=== PATIENT | male | born 1935 | race Caucasian/White ===

== ENCOUNTER 2017-12-18 18:20 | Emergency (ER) | payer MEDICARE ==
[~2017-12-18] VITALS: Ht 182.9 cm; Wt 99.8 kg
== END 2017-12-18 18:56 | disposition home or self-care (01) ==
LOC: ER 18:20
DX: L03.116 Cellulitis of left lower limb (principal); I10 Essential (primary) hypertension; F17.290 Nicotine dependence, other tobacco product, uncomplicated
CPT/HCPCS: 99282

== ENCOUNTER → 2018-08-15 | Outpatient (CLI) | payer MEDICARE | LOC: RAD 15:50 | PROVIDERS: ATTEND Family Medicine | DX: M79.604 Pain in right leg (principal) | CPT/HCPCS: 93971 ==

== ENCOUNTER 2018-09-11 13:51 | Emergency (ER) | payer MEDICARE ==
[~2018-09-11] VITALS: Ht 182.9 cm; Wt 99.8 kg
== END 2018-09-11 18:55 | disposition left against medical advice (07) ==
LOC: ER 13:51
DX: M79.604 Pain in right leg (principal)
CPT/HCPCS: 99281

== ENCOUNTER 2018-11-19 18:47 | Observation (INO) | payer MEDICARE ==
[~2018-11-19] VITALS: Ht 182.9 cm; Wt 99.8 kg
--- NOTE | 2018-11-19 19:46 | NUR ---
AFTER BEING IN ROOM FOR A FEW MINUTES, PT STATES HE ALSO HAS BEEN HAVING INTERMITTENT CHEST DISCOMFORT, WORSENS WITH INSPIRATION, AWAKE ALERT SKIN W/D RESP NONLAB. NAD NOTED. 12 LEAD EKG DONE AND GIVEN TO MD. IV ATTEMPTED X1 WITHOUT SUCCESS, TOLERATED WELL
[2018-11-19 19:57] LABS: BASOPHILS % 0.6 % (0.0-1.0); EOSINOPHILS # (AUTO) 0.1 (0.0-0.4); EOSINOPHILS % 1.8 % (0.0-6.0); HEMATOCRIT 43.9 % (38.2-49.6); LYMPHOCYTES # (AUTO) 1.6 (1.0-3.2); MEAN CORPUSCULAR HEMOGLOBIN 28.7 pg (28-32); MEAN CORPUSCULAR HGB CONC 34.2 g/dL (31-35); MEAN CORPUSCULAR VOLUME 83.9 fL (81-99); MONOCYTES # (AUTO) 0.9 (0.2-0.8); MONOCYTES % 12.7 % (4.4-11.3); NEUTROPHILS # (AUTO) 4.1 (2.1-6.9); NEUTROPHILS % 60.6 % (38.7-80.0); PLATELET COUNT 193 x10e3/uL (140-360); RED BLOOD COUNT 5.23 x10e6/uL (4.3-5.7); RED CELL DISTRIBUTION WIDTH 14.1 % (11.7-14.4)
[2018-11-19] MEDS ORDERED: ASPIRIN 81 MG CHEW TAB PO ONE ×2 (20:00→20:30)
[2018-11-19 20:10] LABS: PARTIAL THROMBOPLASTIN TIME 48.2 seconds (23.8-35.5)
[2018-11-19] MEDS ORDERED: SIMVASTATIN10 MG PO (20:17)
[2018-11-19] MEDS ORDERED: METOPROLOL TART50 MG PO (20:17)
[2018-11-19] MEDS ORDERED: WARFARIN SODIUM5 MG PO (20:17)
[2018-11-19] MEDS ORDERED: DIGOXIN125 MCG PO (20:17)
[2018-11-19] MEDS ORDERED: PROPAFENONE HC425 MG PO (20:17)
[2018-11-19] MEDS ORDERED: DIOVAN HCT 3201 EAC1 PO (20:17)
[2018-11-19] MEDS ORDERED: COUMADIN2.5 MG PO (20:17)
[2018-11-19 20:18] LABS: ALBUMIN/GLOBULIN RATIO 1.4 (0.8-2.0); CALCIUM 9.3 mg/dL (8.4-10.2); CREATININE, SERUM 1.3 mg/dL (0.72-1.25)
[2018-11-19] MEDS ORDERED: ACID REDUCER150 MG PO (20:22)
[2018-11-19 20:24] LABS: INR 3.86; PROTHROMBIN TIME 40.5 seconds (11.9-14.5)
--- NOTE | 2018-11-19 20:25 | Diagnostic Imaging Report ---
EXAMINATION: CHEST 2 VIEWS INDICATION:coughed up sputum with bright red blood x3 COMPARISON: None FINDINGS: PA and lateral views TUBES and LINES: Left chest wall cardiac device. LUNGS: Lungs are well inflated. Scattered calcified granulomas. Bibasilar atelectasis. There is no evidence of pneumonia or pulmonary edema. PLEURA: No pleural effusion or pneumothorax. HEART AND MEDIASTINUM: The cardiomediastinal silhouette is unremarkable. BONES AND SOFT TISSUES: No acute osseous lesion. Soft tissues are unremarkable. UPPER ABDOMEN: No free air under the diaphragm. IMPRESSION: No acute thoracic abnormality. Signed by: DR. Mao Sadler MD on 11/19/2018 8:21 PM
[2018-11-19] MEDS ORDERED: CALCIUM 600+D1 EACH PO (20:26)
[2018-11-19] MEDS ORDERED: MAGNESIUM250 M1 PO (20:26)
[2018-11-19] MEDS ORDERED: OSTEO BI-FLEX1 EAC2 PO (20:26)
[2018-11-19] MEDS ORDERED: VITAMIN C1000 MG PO (20:26)
[2018-11-19] MEDS ORDERED: FISH OIL CONCE1 EACH PO (20:26)
[2018-11-19 20:31] LABS: CREATINE KINASE 30 IU/L (30-200)
--- OUTSIDE RECORDS SUMMARY | 2018-11-19 21:23 | XMS REPORT ---
[facility] Address Unknown Phone Unavailable Care Team Providers Care Pot Sander Name Role Phone Chester CARDOSO Unavailable Unavailable Problems This patient has no known problems. Allergies, Adverse Reactions, Alerts This patient has no known allergies or adverse reactions. Medications This patient has no known medications. Results Test Description Test Time Test Comments Text Results Atomic Results Result Comments CHEST 2 VIEWS 2018-11-19 20:17:00 [place] [address] Patient Name: THOR OLIVEIRA MR #: [id number] : 1935 Age/Sex: 83/M Req #: [id number] Adm Physician: Ordered by: STEFFANY PATTERSON MD Report #: [id number] Location: ER Room/Bed: Procedure: [id number] DX/CHEST 2 VIEWS Exam Date: 11/19/18 Exam Time: 1954 REPORT STATUS: Signed EXAMINATION: CHEST 2 VIEWS INDICATION:coughed up spu rayo with bright red blood x3 COMPARISON: None FINDINGS: PA and lateral views TUBES and LINES: Left chest wall cardiac device. LUNGS: Lungs are well inflated. Scattered calcified granulomas. Bibasilar atelectasis. There is no evidence of pneumonia or pulmonary edema. PLEURA: No pleural effusion or pneumothorax. HEART AND MEDIASTINUM: The cardiomediastinal silhouette is unremarkable. BONES AND SOFT TISSUES: No acute osseous lesion. Soft tissues are unremarkable. UPPER ABDOMEN: No free air under the diaphragm. IMPRESSION: No acute thoracic abnormality. Signed by: DR. Mao Ingram MD on 11/19/2018 8:21 PM Dictated By: MAO INGRAM MD 20 Transcribed By: LANI on 11/19/182020 COPY TO: STEFFANY PATTERSON MD
--- NOTE | 2018-11-19 22:15 | NUR ---
PT ARRIVED TO THE UNIT FROM ER IN A STRETCHER.WITH C/O CHEST PAIN AND HEMOPTYSIS.AAOX4.AMBULATES.SKIN INTACT.ASSESSMENT DONE.NO RESP.DISTRESS.NO PAIN VOICED RIGHT NOW.IV #18G TO LAC PATENT.TELE # 18 IS PLACED.ORIENTED TO THE UNIT.BED LOCKED AND IN LOWEST POSITION.PHONE AND CALL LIGHT WITHIN REACH.INSTRUCTED TO CALL FOR ASSISTANCE NEEDED.KEEP MONITOR THE PT.
[2018-11-19 22:30] VITALS: BP 173/78
[2018-11-19 22:32] VITALS: BP 173/78
[2018-11-19 23:52] VITALS: BP 135/61
[2018-11-20] VITALS (8 sets, daily range): BP systolic 128–169; BP diastolic 60–70
[2018-11-20 05:45] LABS: CREATINE KINASE MB 0.4 ng/mL (0-5.0)
[2018-11-20 05:59] LABS: CHOL/HDL RATIO 2.9 (3.9-4.7)
--- NOTE | 2018-11-20 06:30 | NUR ---
BRIGHT BLOOD STAINED SPUTUM 100CC EMPTIED.
--- NOTE | 2018-11-20 06:30 | NUR ---
PT HAS COUGH AND HEMOPTYSIS.INFORMED TO MD YOUNGBLOOD.
--- NOTE | 2018-11-20 06:50 | NUR ---
REPORT GIVEN TO THE ON COMING RN.WALKING ROUNDS DONE.STABLE CONDITION.
[2018-11-20] MEDS ORDERED: ACETAMINOPHEN 325 MG TAB PO PRN (11:30)
[2018-11-20] MEDS ORDERED: ONDANSETRON HCL INJ 2MG/ML 2ML 2 MG/ML VIAL IV PRN (11:30)
--- NOTE | 2018-11-20 11:32 | NUR ---
called [employer] to assess pacemaker, spoke soo dove. tech will be calling with ETA today
[2018-11-20 11:35] LABS: INR 3.79; PROTHROMBIN TIME 39.9 seconds (11.9-14.5)
--- NOTE | 2018-11-20 12:11 | NUR ---
cancelled [employer] order per md levi. states he spoke with md davis who says pacer does not need to be evaluated
[2018-11-20] MEDS: FAMOTIDINE 20 MG TAB PO SCH (13:30)
--- NOTE | 2018-11-20 17:51 | Consultation ---
DATE OF CONSULTATION: PULMONARY/CRITICAL CARE CONSULTATION REFERRING PHYSICIAN: Dr. Daniels. CHIEF COMPLAINT: Hemoptysis. HISTORY OF PRESENT ILLNESS: The patient is an 83-year-old man. He has a history of atrial fibrillation and takes warfarin on a daily basis. He reports a slight change in his diet, decreased vegetable intake. Over the past 2 days, he has noticed some hemoptysis. It happened twice yesterday and twice this morning. Each time, he was able to put the blood clot in the napkin. He denies any epistaxis. He is not complaining of any chest pain or dyspnea. He denies any fevers. PAST SURGICAL HISTORY: Status post hernia repair. PAST MEDICAL HISTORY 1. Atrial fibrillation as noted above. 2. Hypertension. 3. No prior history of asthma, COPD or other lung problems. SOCIAL HISTORY: The patient smoked a pipe, was never a cigarette smoker. He is a drinker. He has no asbestos exposure. ALLERGIES: HE DOES HAVE AN ALLERGY TO PENICILLIN. FAMILY HISTORY: Noncontributory. REVIEW OF SYSTEMS: He has no fever or weight loss. He has no headache. He has no nasal congestion or pain. He has no sore throat. He does not complain of any dyspnea or cough. He does not complain of chest pain. He denies any abdominal pain. There is no nausea or vomiting. There is no leg edema. There is no calf tenderness. There are no neurological complaints. PHYSICAL EXAMINATION VITAL SIGNS: The patient is afebrile. Blood pressure 146/67 and the pulse is 50, respiratory rate is 18 and saturation is 98%. HEENT: Examination shows no facial swelling or erythema. The nasal mucosa is normal. The oropharynx is normal. LYMPHATIC: Examination shows no submandibular, cervical or supraclavicular adenopathy. CARDIAC: Exam reveals regular rate and rhythm with normal S1 and S2. There are no murmurs or rubs. LUNGS: Auscultation of the lungs is clear, breath sounds bilaterally. There is no wheezing. ABDOMEN: Soft and nontender. There is no rebound or guarding. EXTREMITIES: Examination of the extremities shows no leg edema or calf tenderness. There is no cyanosis or clubbing. SKIN: Examination shows no rashes. NEUROLOGIC: Exam shows no focal abnormalities. RADIOGRAPHIC DATA: Chest x-ray shows no active disease. LABORATORY DATA: White blood cell count is 6.7 and hemoglobin is 15, platelet count is 193. The BUN and creatinine ratio is 19 to 1.30. The other electrolytes are within normal limits. The INR is 3.86 with a PT of 40.5. IMPRESSIONS 1. Hemoptysis. 2. Elevated INR secondary to warfarin. 3. Elevated creatinine of unclear time course. 4. Atrial fibrillation. 5. Hypertension. PLAN 1. Hold warfarin and monitor INR. 2. CT scan of chest with IV contrast. 3. Urinalysis to look for any hematuria. 4. Continue the monitoring of the creatinine. Job#: [id number] ERMELINDA
--- NOTE | 2018-11-20 19:10 | NUR ---
REPORT TAKEN FROM AM RN.WALKING ROUNDS DONE.STABLE CONDITION.
--- NOTE | 2018-11-20 19:39 | Diagnostic Imaging Report ---
EXAM: CT Chest WITHOUT contrast INDICATION: HEMOPTYSIS COMPARISON: Chest x-ray 11/19/2018 TECHNIQUE: Chest was scanned utilizing a multidetector helical scanner from the lung apex through the level of the adrenal glands without administration of IV contrast. Absence of intravenous contrast decreases sensitivity for detection of lymphadenopathy and vascular pathology. Coronal and sagittal reformations were obtained. Routine protocol was performed. IV CONTRAST: None COMPLICATIONS: None RADIATION DOSE: Total DLP: 575.7 mGy*cm Estimated effective dose: (DLP x 0.014 x size factor) mSv CTDIvol has been reviewed. It is below the limits set by the Radiation Protocol Committee (RPC). FINDINGS: LINES/ TUBES: Left chest wall cardiac pacer with leads in the right atrium and right ventricle. LUNGS AND AIRWAYS: Scattered mild reticular nodular opacities bilaterally without lobar predominance. Scattered calcified granulomas. Scattered pulmonary nodules, largest in the left lower lobe measuring 6 mm (series 3 image 93). No consolidations. Airways are normal. PLEURA: The pleural spaces are clear. HEART AND MEDIASTINUM: The thyroid gland is normal. No mediastinal, hilar or axillary lymphadenopathy. The heart is normal in size.. There is no pericardial effusion. The pulmonary artery measures 3.1 cm. Ascending aorta measures 4 cm. Mild atherosclerotic calcifications of the aorta and coronary arteries. UPPER ABDOMEN: Left hepatic 5.3 cm cyst. BONES: There are degenerative changes in the thoracic spine. SOFT TISSUES: Unremarkable. IMPRESSION: Scattered tree-in-bud opacities likely representing atypical infection. Additional scattered pulmonary nodules, also likely infectious. Consider follow-up chest CT in 6-12 months to document resolution. Signed by: DR. Mao Sadler MD on 11/20/2018 7:36 PM
[2018-11-20] MEDS ORDERED: SIMVASTATIN 20 MG TAB PO SCH (21:00)
--- NOTE | 2018-11-20 22:48 | NUR ---
ASSESSMENT DONE.NO RESP.DISTRESS.NO PAIN VOICED .BED LOCKED AND IN LOWEST POSITION.PHONE AND CALL LIGHT WITHIN REACH.INSTRUCTED TO CALL FOR ASSISTANCE NEEDED.
[2018-11-21] VITALS: BP 137/62
--- NOTE | 2018-11-21 03:56 | NUR ---
Urine collected and sent to the lab.
[2018-11-21 03:58] LABS: BILIRUBIN,URINE NEGATIVE (NEGATIVE); CLARITY,URINE CLEAR (CLEAR); COLOR,URINE YELLOW (YELLOW); KETONES,URINE NEGATIVE (NEGATIVE); LEUKOCYTE ESTERASE ,URINE NEGATIVE (NEGATIVE); NITRITE,URINE NEGATIVE (NEGATIVE); PROTEIN,URINE DIPSTICK NEGATIVE (NEGATIVE); URINE UROBILINOGEN 0.2 mg/dL (0.2 - 1)
[2018-11-21 03:59] LABS: EPITHELIAL CELLS,URINE FEW /LPF; RBC,URINE 0-5 /HPF (0-5); WBC,URINE (MAN) 0-5 /HPF (0-5)
[2018-11-21 04:00] VITALS: BP 133/61
[2018-11-21 05:22] LABS: BASOPHILS % 0.4 % (0.0-1.0); EOSINOPHILS # (AUTO) 0.2 (0.0-0.4); LYMPHOCYTES # (AUTO) 1.6 (1.0-3.2); LYMPHOCYTES % 21.6 % (18.0-39.1); MEAN CORPUSCULAR HEMOGLOBIN 28.2 pg (28-32); MEAN CORPUSCULAR HGB CONC 32.9 g/dL (31-35); MEAN CORPUSCULAR VOLUME 85.6 fL (81-99); MONOCYTES # (AUTO) 0.8 (0.2-0.8); MONOCYTES % 10.1 % (4.4-11.3); NEUTROPHILS # (AUTO) 4.9 (2.1-6.9); NEUTROPHILS % 65.8 % (38.7-80.0); PLATELET COUNT 150 x10e3/uL (140-360); RED BLOOD COUNT 4.79 x10e6/uL (4.3-5.7); RED CELL DISTRIBUTION WIDTH 14.2 % (11.7-14.4)
[2018-11-21 05:34] LABS: HEMOGLOBIN 13.5 g/dL (14.0-18.0)
[2018-11-21 05:49] LABS: INR 2.16; PROTHROMBIN TIME 25.7 seconds (11.9-14.5)
[2018-11-21 05:56] LABS: ANION GAP 13.9 mmol/L (8-16); BLOOD UREA NITROGEN 17 mg/dL (7-26); BUN/CREATININE RATIO 18 (6-25); CALCIUM 8.7 mg/dL (8.4-10.2); CARBON DIOXIDE 26 mmol/L (22-29); CHLORIDE 105 mmol/L (98-107); CREATININE, SERUM 0.97 mg/dL (0.72-1.25); EST GLOMERULAR FILTRATION RATE > 60 ML/MIN (60-); GLUCOSE 100 mg/dL (74-118); POTASSIUM 3.9 mmol/L (3.5-5.1); SODIUM 141 mmol/L (136-145)
--- NOTE | 2018-11-21 06:50 | NUR ---
Report given to the oncoming rn walking rounds done.stable condition.
--- NOTE | 2018-11-21 07:05 | NUR ---
Received patient mid fowlers position, side rails upx2, call light within reach. AAOX3 to time, person, place. Respirations even and unlabored. Denies pain. Instructed patient to use call light for assistance. Voiced understanding. Will continue to monitor.
[2018-11-21 08:05] VITALS: BP 143/93
[2018-11-21 08:08] VITALS: BP 119/59
[2018-11-21] MEDS ORDERED: DIGOXIN 0.125 MG TAB PO SCH (09:00)
[2018-11-21] MEDS: FAMOTIDINE 20 MG TAB PO SCH (10:09)
[2018-11-21] MEDS ORDERED: DOXYCYCLINE HYCLATE TABLET 100 MG TAB PO SCH (12:45)
[2018-11-21] MEDS ORDERED: WARFARIN SOD 5 MG TAB PO ONE (12:45)
[2018-11-21 12:46] VITALS: BP 145/69
[2018-11-21] MEDS ORDERED: DOXYCYCLINE HY100 MG PO (13:30)
--- NOTE | 2018-11-21 13:49 | Discharge Summary ---
PRIMARY CARE DOCTOR: Dr. Steven Salas. FINAL DIAGNOSIS: Hemoptysis due to atypical pneumonia and supratherapeutic international normalized ratio. SECONDARY DIAGNOSES 1. Atrial fibrillation, on Coumadin. 2. Mild acute renal failure, resolved. 3. Hypertension, resolved. CONSULTANTS: Dr. Larry, camp advisor. PROCEDURES/STUDIES PERFORMED: Computed tomography of the chest. HISTORY: Per H&P. HOSPITAL COURSE: Patient was admitted with INR of 3.86, was holding it, now is back to therapeutic. I will go ahead and restart his usual Coumadin dosage at home. Patient's chest x-ray was normal. However, his CT shows atypical infection. I will go ahead and start him on doxycycline. I have discussed this case with Dr. Larry today. Patient will follow up with him in three days. There is also some concern about his initial EKG, whether his pacemaker has a lead failure. I sent the EKG to his engineer booster and exhauster, and his engineer booster and exhauster does not think there is a lead failure but does want him to follow up with him next week. Initially his creatinine was 1.3. Right now it is 0.97. Patient was seen and examined today. CONDITION ON DISCHARGE: Improved. DISCHARGE MEDICATIONS: Please see medication reconciliation form. KRYSTYNA YOUNGBLOOD M.D. Job#: [id number] EV cc:STEVEN SALAS MD
--- NOTE | 2018-11-21 14:04 | NUR ---
Left AC IV discontinued. No signs of infiltration noted.2x2 gauze and tape placed. Taken via wheelchair by PCT to personla car. Accompanied by family members and . AAOX4 to time, person, place, situation. Respirations even and unlabored. RX, discharge instructions and all personal belongings taken with patient.
== END 2018-11-21 14:04 | disposition home or self-care (01) ==
LOC: ER 18:47 → ERHOLD 21:20 → MED/SURG 22:13
PROVIDERS: ADMIT Internal Medicine; ATTEND Internal Medicine
DX: D68.32 Hemorrhagic disorder due to extrinsic circulating anticoagulants (principal); R04.2 Hemoptysis; J18.9 Pneumonia, unspecified organism; I48.91 Unspecified atrial fibrillation; E87.5 Hyperkalemia; T45.515A Adverse effect of anticoagulants, initial encounter; N17.9 Acute kidney failure, unspecified; Z95.0 Presence of cardiac pacemaker
CPT/HCPCS: 36415 ×3; 71046; 71250; 80048; 80053; 80061; 80162; 81001; 82550 ×2; 82553 ×2; 84484 ×2; 85025 ×2; 85610 ×3; 85730; 93005; 93306; 99284; G0378 ×3

== ENCOUNTER → 2018-12-20 | Outpatient (CLI) | payer MEDICARE ==
[~2018-12-20] MED LIST: ACID REDUCER150 MG PO; CALCIUM 600+D1 EACH PO; COUMADIN2.5 MG PO; DIGOXIN125 MCG PO; DIOVAN HCT 3201 EAC1 PO; DOXYCYCLINE HY100 MG PO; FISH OIL CONCE1 EACH PO; MAGNESIUM250 M1 PO; METOPROLOL TART50 MG PO; OSTEO BI-FLEX1 EAC2 PO; PROPAFENONE HC425 MG PO; SIMVASTATIN10 MG PO; VITAMIN C1000 MG PO; WARFARIN SODIUM5 MG PO
--- NOTE | 2018-12-20 17:34 | Diagnostic Imaging Report ---
EXAMINATION: CHEST 2 VIEWS INDICATION: ^[id number] ^1700 ^PNEUMONIA COMPARISON: CT chest 11/20/2018 and chest radiograph 11/19/2018 FINDINGS: PA and lateral views TUBES and LINES: Stable 2-lead pacemaker with leads overlying the right atrial appendage and right ventricle. LUNGS: Lungs are well inflated. Near resolution of the bilateral lower lobe reticular nodular opacities. A few dense nodules in the right lower lobe consistent with calcified granulomas, unchanged. There is no evidence of pneumonia or pulmonary edema. PLEURA: No pleural effusion or pneumothorax. HEART AND MEDIASTINUM: The cardiomediastinal silhouette is unremarkable. BONES AND SOFT TISSUES: Mild degenerative changes of the thoracic spine. Soft tissues are unremarkable. UPPER ABDOMEN: No free air under the diaphragm. IMPRESSION: Resolved bilateral lower lobes atypical pneumonia. No new consolidations. Signed by: Dr. Mine Little M.D. on 12/20/2018 5:30 PM
== END ==
LOC: RAD 16:50
PROVIDERS: ATTEND Family Medicine
DX: J18.9 Pneumonia, unspecified organism (principal)
CPT/HCPCS: 71046

== ENCOUNTER → 2019-06-27 | Outpatient (CLI) | payer MEDICARE ==
--- NOTE | 2019-06-27 12:51 | Diagnostic Imaging Report ---
EXAM: CHEST 2 VIEWS DATE: 06/27/2019 12:15 PM INDICATION: Shortness of breath COMPARISON: 12/20/2018 FINDINGS: Left-sided dual-lead pacing device identified in stable position. The trachea is midline. The lungs are symmetrically expanded without evidence for focal consolidation, pneumothorax, or significant pleural effusion. Stable appearing calcified granulomas noted within the right lower lung zone. The cardiac mediastinal silhouette is stable in appearance. No acute osseous abnormality is identified. IMPRESSION: No acute cardiopulmonary process identified. Signed by: Dr. Adalberto Bella MD on 06/27/2019 12:48 PM
== END ==
LOC: RAD 11:53
PROVIDERS: ATTEND Internal Medicine Cardiovascular Disease
DX: R06.02 Shortness of breath (principal)
CPT/HCPCS: 71046

== ENCOUNTER 2019-08-12 00:04 | Emergency (ER) | payer MEDICARE ==
[~2019-08-12] VITALS: Ht 182.9 cm; Wt 99.8 kg
[2019-08-12 01:17] LABS: BASOPHILS % 0.5 % (0.0-1.0); EOSINOPHILS # (AUTO) 0.1 (0.0-0.4); EOSINOPHILS % 1.4 % (0.0-6.0); HEMATOCRIT 46.4 % (38.2-49.6); HEMOGLOBIN 15.8 g/dL (14.0-18.0); LYMPHOCYTES # (AUTO) 2.5 (1.0-3.2); MEAN CORPUSCULAR HEMOGLOBIN 29.5 pg (28-32); MEAN CORPUSCULAR HGB CONC 34.1 g/dL (31-35); MEAN CORPUSCULAR VOLUME 86.6 fL (81-99); MONOCYTES % 11.6 % (4.4-11.3); NEUTROPHILS # (AUTO) 4.7 (2.1-6.9); NEUTROPHILS % 56.3 % (38.7-80.0); PLATELET COUNT 197 x10e3/uL (140-360); RED BLOOD COUNT 5.36 x10e6/uL (4.3-5.7); RED CELL DISTRIBUTION WIDTH 13.3 % (11.7-14.4)
[2019-08-12 01:21] LABS: INR 1.81; PROTHROMBIN TIME 21.6 seconds (11.9-14.5)
[2019-08-12 01:22] LABS: PARTIAL THROMBOPLASTIN TIME 41.2 seconds (23.8-35.5)
[2019-08-12 01:30] LABS: ALANINE AMINOTRANSFERASE 40 IU/L (0-55); ALBUMIN 3.8 g/dL (3.5-5.0); ALBUMIN/GLOBULIN RATIO 1.1 (0.8-2.0); ALKALINE PHOSPHATASE 64 IU/L (40-150); ANION GAP 14.9 mmol/L (8-16); BLOOD UREA NITROGEN 23 mg/dL (7-26); BUN/CREATININE RATIO 18 (6-25); CALCIUM 9.9 mg/dL (8.4-10.2); CARBON DIOXIDE 27 mmol/L (22-29); CHLORIDE 101 mmol/L (98-107); CREATINE KINASE 32 IU/L (30-200); CREATININE, SERUM 1.31 mg/dL (0.72-1.25); EST GLOMERULAR FILTRATION RATE 52 ML/MIN (60-); GLUCOSE 108 mg/dL (74-118); POTASSIUM 3.9 mmol/L (3.5-5.1); SODIUM 139 mmol/L (136-145)
[2019-08-12 01:43] LABS: CREATINE KINASE MB < 1.00 ng/mL (0-4.3)
--- NOTE | 2019-08-12 02:14 | Diagnostic Imaging Report ---
EXAM: CT Chest WITHOUT contrast INDICATION: ^HEMOPTYSIS ^[id number] ^0100 ^Y COMPARISON: Chest CT dated 11/20/2018 TECHNIQUE: Chest was scanned utilizing a multidetector helical scanner from the lung apex through the level of the adrenal glands without administration of IV contrast. Absence of intravenous contrast decreases sensitivity for detection of lymphadenopathy and vascular pathology. Coronal and sagittal reformations were obtained. Routine protocol was performed. IV CONTRAST: None COMPLICATIONS: None RADIATION DOSE: Total DLP: 553.01 mGy*cm Estimated effective dose: (DLP x 0.014 x size factor) mSv CTDIvol has been reviewed. It is below the limits set by the Radiation Protocol Committee (RPC). FINDINGS: LINES/ TUBES: Left chest wall cardiac pacer with leads in the right atrium and right ventricle. LUNGS AND AIRWAYS: Scattered mild tree-in-bud opacities bilaterally. Scattered calcified granulomas and pulmonary nodules are again seen. Right middle lobe and right base base scarring with traction bronchiectasis are unchanged. Airways are normal. PLEURA: The pleural spaces are clear. HEART AND MEDIASTINUM: The thyroid gland is normal. No mediastinal, hilar or axillary lymphadenopathy. The heart is normal in size.. There is no pericardial effusion. The pulmonary artery measures 3.2 cm. Ascending aorta measures 3.9 cm. Mild atherosclerotic calcifications of the aorta and moderate calcification of coronary arteries. UPPER ABDOMEN: Left hepatic cyst. BONES: There are degenerative changes in the thoracic spine. SOFT TISSUES: Unremarkable. IMPRESSION: Scattered tree-in-bud opacities likely representing atypical infection, unchanged. Additional scattered pulmonary nodules and calcified granulomas are not significantly changed when compared to CT dated 11/20/2018. No findings to explain patient's hemoptysis. Signed by: Dr. Domo Abrams MD on 08/12/2019 2:10 AM
== END 2019-08-12 02:45 | disposition home or self-care (01) ==
LOC: ER 00:04
DX: J18.9 Pneumonia, unspecified organism (principal); R04.2 Hemoptysis; I10 Essential (primary) hypertension; I48.91 Unspecified atrial fibrillation; Z95.810 Presence of automatic (implantable) cardiac defibrillator; Z82.49 Family history of ischemic heart disease and other diseases of the circulatory system; Z88.0 Allergy status to penicillin; Z91.041 Radiographic dye allergy status; Z79.01 Long term (current) use of anticoagulants
CPT/HCPCS: 36415; 71250; 80053; 82550; 82553; 84484; 85025; 85610; 85730; 93005; 99284

== ENCOUNTER → 2019-12-06 | Outpatient (CLI) | payer MEDICARE ==
--- NOTE | 2019-12-06 13:41 | Diagnostic Imaging Report ---
EXAM: CT Chest WITHOUT contrast INDICATION: ^ABNORMAL CHEST XRAY COMPARISON: Chest CT 08/12/2019, 11/20/2018 TECHNIQUE: Chest was scanned utilizing a multidetector helical scanner from the lung apex through the level of the adrenal glands without administration of IV contrast. Absence of intravenous contrast decreases sensitivity for detection of lymphadenopathy and vascular pathology. Coronal and sagittal reformations were obtained. Routine protocol was performed. IV CONTRAST: None COMPLICATIONS: None RADIATION DOSE: Total DLP: 571 mGy*cm Estimated effective dose: (DLP x 0.014 x size factor) mSv CTDIvol has been reviewed. It is below the limits set by the Radiation Protocol Committee (RPC). Dose modulation, iterative reconstruction, and/or weight based adjustment of the mA/kV was utilized to reduce the radiation dose to as low as reasonably achievable. FINDINGS: LINES/ TUBES: Left mechanical cardiac device. LUNGS AND AIRWAYS: Scattered tree-in-bud nodular opacities throughout both lungs are unchanged and minimally decreased when compared to the previous study from July 2019. No new or concerning pulmonary mass, nodule, or consolidation. Multiple small calcified granulomas are unchanged. Scattered lung scarring is unchanged, notably in the right middle lobe. Mild tubular bronchiectasis is also unchanged. PLEURA: The pleural spaces are clear. HEART AND MEDIASTINUM: Stable heart size. No pericardial effusion. Unchanged prominent nonspecific subcentimeter mediastinal and hilar lymph nodes. Coronary artery calcifications. UPPER ABDOMEN: Unchanged hepatic cyst. Scattered vascular calcifications. BONES: No acute osseous abnormality. SOFT TISSUES: Unremarkable. IMPRESSION: Unchanged to minimally decreased tree-in-bud opacities throughout both lungs again most suggestive of chronic atypical infection. No new or concerning thoracic abnormality. Signed by: Lencho Sandoval MD on 12/06/2019 1:39 PM
== END ==
LOC: CT 12:42
PROVIDERS: ATTEND Family Medicine
DX: R91.8 Other nonspecific abnormal finding of lung field (principal)
CPT/HCPCS: 71250

== ENCOUNTER → 2021-01-21 | Outpatient (CLI) | payer MEDICARE | LOC: CT 13:42 | PROVIDERS: ATTEND Internal Medicine Critical Care Medicine | DX: J18.9 Pneumonia, unspecified organism (principal); R09.02 Hypoxemia; J47.9 Bronchiectasis, uncomplicated; I48.91 Unspecified atrial fibrillation; K21.9 Gastro-esophageal reflux disease without esophagitis | CPT/HCPCS: 71250 ==

== ENCOUNTER → 2021-04-10 | Outpatient (CLI) | payer MEDICARE | LOC: RAD 11:26 | PROVIDERS: ATTEND Family Medicine | DX: M54.5 Low back pain (principal) | CPT/HCPCS: 72110 ==

== ENCOUNTER 2021-08-18 13:54 | Emergency (ER) | payer MEDICARE ==
[~2021-08-18] VITALS: Ht 182.9 cm; Wt 99.8 kg
[2021-08-18] MEDS ORDERED: TETANUS/DIPHTHERIA TOX ADULT 0.5 ML SYR IM ONE (16:45)
[2021-08-18] MEDS ORDERED: TETANUS/DIPHTHERIA TOX ADULT 0.5 ML SYR ONE (16:48)
== END 2021-08-18 16:42 | disposition home or self-care (01) ==
LOC: ER 15:39
DX: S61.212A Laceration without foreign body of right middle finger without damage to nail, initial encounter (principal); W26.0XXA Contact with knife, initial encounter; Y93.G3 Activity, cooking and baking; Y92.000 Kitchen of unspecified non-institutional (private) residence as the place of occurrence of the external cause; I10 Essential (primary) hypertension; I48.91 Unspecified atrial fibrillation; Z95.810 Presence of automatic (implantable) cardiac defibrillator
CPT/HCPCS: 90714; 99283

== ENCOUNTER → 2021-10-23 | Outpatient (CLI) | payer MEDICARE | LOC: RAD 13:50 | PROVIDERS: ATTEND Family Medicine | DX: J18.9 Pneumonia, unspecified organism (principal) | CPT/HCPCS: 71046 ==

== ENCOUNTER → 2022-01-12 | Outpatient (CLI) | payer MEDICARE | LOC: CT 16:51 | PROVIDERS: ATTEND Family Medicine | DX: R09.02 Hypoxemia (principal); J18.9 Pneumonia, unspecified organism; I48.91 Unspecified atrial fibrillation; J47.9 Bronchiectasis, uncomplicated; K21.9 Gastro-esophageal reflux disease without esophagitis | CPT/HCPCS: 71250 ==

== ENCOUNTER 2022-01-30 13:09 | Emergency (ER) | payer MEDICARE ==
[~2022-01-30] VITALS: Ht 182.9 cm; Wt 99.8 kg
[2022-01-30] MEDS ORDERED: DEXAMETHASONE SOD PHOS 10 MG/1 ML VIAL IM ONE (13:30)
[2022-01-30] MEDS ORDERED: HYDROCODONE/APAP 5MG-325MG TAB PO ONE (13:45)
[2022-01-30] MEDS ORDERED: COLACE100 MG PO (15:18)
[2022-01-30] MEDS ORDERED: HYDROCODON-ACE1 EA11 PO ×6 (15:18→16:26)
[2022-01-30] MEDS ORDERED: METHYLPREDNISOLO4 M1 PO (15:18)
== END 2022-01-30 16:46 | disposition home or self-care (01) ==
LOC: ER 13:15
DX: M54.31 Sciatica, right side (principal); M79.604 Pain in right leg; Z95.810 Presence of automatic (implantable) cardiac defibrillator
CPT/HCPCS: 72110; 73502; 99283; J1100

== ENCOUNTER → 2022-02-27 | Outpatient (CLI) | payer MEDICARE ==
[~2022-02-27] MED LIST changes: +COLACE100 MG PO; +HYDROCODON-ACE1 EA11 PO; +METHYLPREDNISOLO4 M1 PO
== END ==
LOC: RAD 09:25
PROVIDERS: ATTEND Family Medicine
DX: Z01.818 Encounter for other preprocedural examination (principal)
CPT/HCPCS: 71046

== ENCOUNTER → 2022-04-13 | Outpatient (CLI) | payer MEDICARE | LOC: CT 13:35 | PROVIDERS: ATTEND Internal Medicine Critical Care Medicine | DX: I48.91 Unspecified atrial fibrillation (principal); J47.9 Bronchiectasis, uncomplicated; K21.9 Gastro-esophageal reflux disease without esophagitis; R09.02 Hypoxemia; J18.9 Pneumonia, unspecified organism | CPT/HCPCS: 71250 ==

== ENCOUNTER 2022-04-20 07:05 | Observation (INO) | payer MEDICARE ==
[2022-04-17 10:24] LABS: BASOPHILS % 0.6 % (0.0-1.0); EOSINOPHILS # (AUTO) 0.2 (0.0-0.4); EOSINOPHILS % 3.2 % (0.0-6.0); HEMATOCRIT 42.3 % (38.2-49.6); HEMOGLOBIN 13.4 g/dL (14.0-18.0); LYMPHOCYTES # (AUTO) 1.3 (1.0-3.2); LYMPHOCYTES % 26.4 % (18.0-39.1); MEAN CORPUSCULAR HEMOGLOBIN 28.8 pg (28-32); MEAN CORPUSCULAR HGB CONC 31.7 g/dL (31-35); MONOCYTES # (AUTO) 0.6 (0.2-0.8); MONOCYTES % 12.1 % (4.4-11.3); NEUTROPHILS # (AUTO) 2.7 (2.1-6.9); NEUTROPHILS % 57.3 % (38.7-80.0); PLATELET COUNT 155 x10e3/uL (140-360); RED BLOOD COUNT 4.65 x10e6/uL (4.3-5.7); RED CELL DISTRIBUTION WIDTH 14.6 % (11.7-14.4)
[2022-04-17 10:29] LABS: ANION GAP 13.1 mmol/L (8-16); CALCIUM 8.9 mg/dL (8.4-10.2); CREATININE, SERUM 1.01 mg/dL (0.72-1.25); POTASSIUM 4.1 mmol/L (3.5-5.1)
[~2022-04-20] VITALS: Ht 182.9 cm; Wt 95.3 kg
[~2022-04-20 07:05] MED LIST changes: +LOVENOX40 MG/0.4 SC; +ROPIVACAINE 246.25 MG, EPINEPHRINE HCL 1:1000 1ML 0.5 MG, CLONIDINE HCL 0.08 MG, KETORO... INJ ONE
[2022-04-20] MEDS ORDERED: GABAPENTIN 300 MG CAP ONE (07:09)
[2022-04-20] MEDS ORDERED: CELECOXIB 200 MG CAP ONE (07:09)
[2022-04-20] MEDS ORDERED: DEXAMETHASONE SOD PHOS 10 MG/1 ML VIAL ONE (07:34)
[2022-04-20] MEDS ORDERED: SODIUM CHLORIDE 0.9% 500ML 500 ML ONE (08:42)
[2022-04-20] MEDS ORDERED: Vancomycin IV 500 MG ONE ×2 (08:42→09:36)
[2022-04-20] MEDS ORDERED: TRANEXAMIC ACID 20 ML ONE (08:42)
[2022-04-20] MEDS ORDERED: BUPIVACAINE 7.5MG/ML /DEXTROSE 82.5MG/ML 2 ML AMP INJ ONE (09:45)
[2022-04-20] MEDS ORDERED: KETOROLAC TROMETHAMINE 30 MG/ML VIAL IV PRN (11:00)
[2022-04-20] MEDS ORDERED: ACETAMINOPHEN 650 MG SUPP PR PRN (11:00)
[2022-04-20] MEDS ORDERED: SODIUM CHLORIDE 0.9% 1000ML 1,000 ML IV SCH (11:00)
[2022-04-20] MEDS ORDERED: ZOLPIDEM TARTRATE 5 MG TAB PO PRN (11:00)
[2022-04-20] MEDS ORDERED: DOCUSATE SODIUM 100 MG CAP PO PRN (11:00)
[2022-04-20] MEDS ORDERED: HYDROCODONE/APAP 7.5MG-325MG 1 EA TAB PO PRN (11:00)
[2022-04-20] MEDS ORDERED: ONDANSETRON HCL INJ 2MG/ML 2ML 2 MG/ML VIAL IV PRN (11:00)
[2022-04-20] MEDS ORDERED: HYDROCODONE/APAP 5MG-325MG TAB PO PRN (11:00)
[2022-04-20] MEDS ORDERED: DIPHENHYDRAMINE HCL INJ 50 MG/ML VIAL IV PRN (11:00)
[2022-04-20] MEDS ORDERED: FENTANYL CITRATE/PF 100MCG/2 ML INJ ONE ×2 (11:23→14:00)
[2022-04-20] MEDS ORDERED: MEPERIDINE HCL INJ 25 MG/ML VIAL ONE (11:58)
[2022-04-20 12:30] VITALS: BP 151/69
[2022-04-20] MEDS ORDERED: POVIDONE IODINE 0.05% 0.05 % ML PO ONE (12:35)
[2022-04-20] MEDS ORDERED: LIDOCAINE HCL 2% LOCAL INJ 5 ML SDV VIAL INJ ONE (12:35)
[2022-04-20] MEDS ORDERED: ACETAMINOPHEN 1000 MG/100 ML IV ONE (12:35)
[2022-04-20] MEDS ORDERED: SEVOFLURANE INHAL SOLN 250 ML PEN BTL ONE (12:35)
[2022-04-20] MEDS ORDERED: PROPOFOL IV EMULSION 10 MG/ML 20 ML VIAL ONE (12:35)
[2022-04-20] MEDS ORDERED: ONDANSETRON HCL INJ 2MG/ML 2ML 2 MG/ML VIAL ONE (12:35)
[2022-04-20] MEDS ORDERED: MIDAZOLAM HCL 2 MG/2 ML VIAL ONE (14:00)
[2022-04-20] MEDS ORDERED: ACETAMINOPHEN 1000 MG/100 ML IV PRN (14:00)
[2022-04-20 16:19] VITALS: BP 153/56
[2022-04-20] MEDS ORDERED: CELECOXIB 100 MG CAP PO SCH (17:00)
[2022-04-20] MEDS ORDERED: ASPIRIN 325 MG TAB PO SCH (17:00)
[2022-04-20] MEDS ORDERED: CELECOXIB 200 MG CAP PO SCH (17:45)
== END 2022-04-20 18:25 | disposition home health service (06) ==
LOC: OR 07:05 → PACU V 10:56 → MED/SURG 12:30
PROVIDERS: ADMIT Specialist; ATTEND Specialist
DX: M16.11 Unilateral primary osteoarthritis, right hip (principal); Z01.818 Encounter for other preprocedural examination; Z20.822 Contact with and (suspected) exposure to COVID-19; I10 Essential (primary) hypertension; K21.9 Gastro-esophageal reflux disease without esophagitis; I48.91 Unspecified atrial fibrillation; Z79.01 Long term (current) use of anticoagulants; Z95.0 Presence of cardiac pacemaker; Z88.0 Allergy status to penicillin; Z91.041 Radiographic dye allergy status
CPT/HCPCS: 0223U; 27130; 36415; 72170; 80048; 85025; 86850; 86900; 86920; 93005; 94799; 97110; 97116 ×2; 97139; 97161; 97530 ×2; C1713 ×3; C1776 ×2; G0378; J0131; J0171; J0690; J1100; J1885; J2001; J2175; J2250; J2405; J2704; J2795; J3010; J3370; J7030; J7040

== ENCOUNTER → 2023-04-08 | Outpatient (CLI) | payer MEDICARE ==
[~2023-04-08] MED LIST changes: -ROPIVACAINE 246.25 MG, EPINEPHRINE HCL 1:1000 1ML 0.5 MG, CLONIDINE HCL 0.08 MG, KETORO... INJ ONE
== END ==
LOC: CT 15:17
PROVIDERS: ATTEND Nurse Practitioner Family
DX: R09.02 Hypoxemia (principal); J18.9 Pneumonia, unspecified organism; I48.91 Unspecified atrial fibrillation; J47.9 Bronchiectasis, uncomplicated; K21.9 Gastro-esophageal reflux disease without esophagitis
CPT/HCPCS: 71250

== ENCOUNTER 2024-10-23 22:39 | Emergency (ER) | payer MEDICARE ==
[~2024-10-23] VITALS: Ht 182.9 cm; Wt 95.3 kg
[2024-10-24 00:16] LABS: CORONAVIRUS COVID-19 AG NEGATIVE (NEGATIVE); INFLUENZA A AG NEGATIVE (NEGATIVE); INFLUENZA B AG NEGATIVE (NEGATIVE)
[2024-10-24 00:20] LABS: BASOPHILS % 0.4 % (0.0-1.0); EOSINOPHILS # (AUTO) 0.1 (0.0-0.4); EOSINOPHILS % 1.4 % (0.0-6.0); HEMATOCRIT 44.3 % (38.2-49.6); LYMPHOCYTES # (AUTO) 0.7 (1.0-3.2); LYMPHOCYTES % 8.4 % (18.0-39.1); MEAN CORPUSCULAR HEMOGLOBIN 29.9 pg (28-32); MEAN CORPUSCULAR HGB CONC 31.6 g/dL (31-35); MEAN CORPUSCULAR VOLUME 94.7 fL (81-99); MONOCYTES # (AUTO) 0.9 (0.2-0.8); MONOCYTES % 11.1 % (4.4-11.3); NEUTROPHILS # (AUTO) 6.5 (2.1-6.9); NEUTROPHILS % 78.3 % (38.7-80.0); PLATELET COUNT 176 x10e3/uL (140-360); RED BLOOD COUNT 4.68 x10e6/uL (4.3-5.7); RED CELL DISTRIBUTION WIDTH 14.2 % (11.7-14.4); WHITE BLOOD COUNT 8.35 x10e3/uL (4.8-10.8)
[2024-10-24 00:36] VITALS: PULSE 54; RESP 20; O2SAT 94
[2024-10-24] MEDS: ALBUTEROL/IPRATROPIUM 3 ML NEB NEB STA (00:38)
[2024-10-24 00:53] VITALS: PULSE 60; RESP 18
[2024-10-24 01:01] LABS: TROPONIN I < 0.05 ng/mL (0.0-0.40)
[2024-10-24 01:07] LABS: ALANINE AMINOTRANSFERASE 27 IU/L (0-55); ALBUMIN 3.6 g/dL (3.5-5.0); ALBUMIN/GLOBULIN RATIO 0.9 (0.8-2.0); ALKALINE PHOSPHATASE 74 IU/L (40-150); ANION GAP 16.7 mmol/L (8-16); BILIRUBIN,TOTAL 2.5 mg/dL (0.2-1.2); BLOOD UREA NITROGEN 25 mg/dL (7-26); BUN/CREATININE RATIO 22 (6-25); CALCIUM 9.5 mg/dL (8.4-10.2); CARBON DIOXIDE 25 mmol/L (22-29); CHLORIDE 95 mmol/L (98-107); CREATINE KINASE 124 IU/L (30-200); CREATININE, SERUM 1.13 mg/dL (0.72-1.25); EST GLOMERULAR FILTRATION RATE 62 ML/MIN (>=60); GLUCOSE 113 mg/dL (74-118); POTASSIUM 3.7 mmol/L (3.5-5.1); SODIUM 133 mmol/L (136-145); TOTAL PROTEIN 7.4 g/dL (6.5-8.1)
[2024-10-24 02:33] VITALS: PULSE 57; RESP 20; TEMP 98.5; O2SAT 95
[2024-10-24] MEDS ORDERED: AZITHROMYCIN250 MG PO (02:34)
[2024-10-24] MEDS ORDERED: VENTOLIN HFA18 GM INH (02:34)
[2024-10-24] MEDS ORDERED: PREDNISONE20 MG PO (02:34)
== END 2024-10-24 02:45 | disposition home or self-care (01) ==
LOC: ER 22:49
DX: R50.9 Fever, unspecified (principal); J06.9 Acute upper respiratory infection, unspecified; R05.9 Cough, unspecified; R53.81 Other malaise; I10 Essential (primary) hypertension; I48.91 Unspecified atrial fibrillation; K21.9 Gastro-esophageal reflux disease without esophagitis; M19.09 Primary osteoarthritis, other specified site; Z11.52 Encounter for screening for COVID-19; Z95.810 Presence of automatic (implantable) cardiac defibrillator
CPT/HCPCS: 36415; 71045; 80053; 82550; 83690; 83880; 84484; 85025; 93005; 94640; 94799; 99284